=== PATIENT | female | born 1955 | race Two or more races ===

== ENCOUNTER 2019-06-22 15:30 | Emergency (ER) | payer SELFPAY ==
[~2019-06-22] VITALS: Ht 167.6 cm; Wt 66.0 kg
[2019-06-22] MEDS ORDERED: KETOROLAC 30MG/ML VIAL IV STA (16:28)
[2019-06-22] MEDS ORDERED: SODIUM CHLORIDE 0.9% 1,000 ML IV ONE (16:28)
[2019-06-22] MEDS ORDERED: BACITRACIN 15GM TUBE TOP ONE (16:30)
[2019-06-22 16:41] LABS: BASOPHILS % 0.8 % (0.0-2.0); EOSINOPHILS % 1.9 % (0.0-5.0); HEMATOCRIT. 41.8 % (36.0-48.0); HEMOGLOBIN. 14.1 g/dL (12.0-16.0); LYMPHOCYTES % 11.7 % (20.0-50.0); MEAN CORPUSCULAR HEMOGLOBIN 30.8 pg (28.0-32.0); MEAN CORPUSCULAR VOLUME 91.3 fL (81.0-99.0); MEAN PLATELET VOLUME 9.1 fl (7.4-10.4); MONOCYTES % 7.3 % (2.0-8.0); NEUTROPHILS % 78.3 % (40.0-76.0); PLATELET 175 x1000/uL (130-400); RED BLOOD CELL COUNT 4.58 mill/uL (4.2-5.4); RED CELL DISTRIBUTION WIDTH 13.5 % (11.6-14.6)
[2019-06-22 16:45] LABS: CHLORIDE 107 mEq/L (98-107)
[2019-06-22 16:48] LABS: PARTIAL THROMBOPLASTIN TIME 26.8 sec (23.4-31.0); PROTHROMBIN TIME 10.7 sec (9.6-11.0)
[2019-06-22] MEDS ORDERED: ACETAMINOPHEN 325MG TABLET PO ONE (22:15)
[2019-06-22] MEDS ORDERED: IBUPROFEN 600MG TABLET PO ONE (22:15)
[2019-06-22 22:55] VITALS: BP 140/73
== END 2019-06-22 22:55 | disposition home or self-care (01) ==
LOC: ER 16:00
DX: S70.312A Abrasion, left thigh, initial encounter (principal); S80.812A Abrasion, left lower leg, initial encounter; M25.552 Pain in left hip; Z88.5 Allergy status to narcotic agent; V03.10XA Pedestrian on foot injured in collision with car, pick-up truck or van in traffic accident, initial encounter; Y93.89 Activity, other specified; Y92.488 Other paved roadways as the place of occurrence of the external cause
CPT/HCPCS: 36415; 71045; 72192; 73522; 73552; 73560; 73590; 80053; 85025; 85610; 85730; 86850; 86900; 86901; 93005; 96374; 99284; J1885; J7030